=== PATIENT | male | born 1955 | race Caucasian/White ===

== ENCOUNTER 2023-02-17 09:07 | Emergency (ER) | payer MEDICARE, BC ==
[~2023-02-17] VITALS: Ht 182.9 cm; Wt 81.6 kg
[2023-02-17] MEDS ORDERED: ONDANSETRON ODT 4 MG TAB.RAPDIS SL ONE (10:00)
[2023-02-17] MEDS ORDERED: MECLIZINE HCL 25 MG TABLET PO ONE (10:00)
[2023-02-17] MEDS ORDERED: MECLIZINE HCL 25 MG TABLET ONE (10:03)
[2023-02-17] MEDS ORDERED: ONDANSETRON ODT 4 MG TAB.RAPDIS ONE (10:03)
[2023-02-17] MEDS ORDERED: MECL-159 PO (10:07)
[2023-02-17 10:24] LABS: CALCIUM 9.8 mg/dL (8.5-10.1); CREATININE 1.3 mg/dL (0.6-1.3); POTASSIUM 4.2 mmol/L (3.5-5.1)
[2023-02-17 10:27] LABS: BASOPHILS % (AUTO) 0.4 % (0.0-2.0); DIFFERENTIAL COMMENT 0; EOSINOPHILS % (AUTO) 0.4 % (0.0-7.0); HEMATOCRIT 42.5 % (36.7-47.1); HEMOGLOBIN 14.7 g/dL (12.5-16.3); LYMPHOCYTES % (AUTO) 12.4 % (20.5-51.5); MEAN CORPUSCULAR HEMOGLOBIN 33.1 uug (23.8-33.4); MEAN CORPUSCULAR HGB CONC 35 g/dL (32.5-36.3); MEAN CORPUSCULAR VOLUME 95.7 fL (73.0-96.2); MONOCYTES # (AUTO) 0.4 K/uL (0.1-1.30); MONOCYTES % (AUTO) 5.2 % (0.0-11.0); NEUTROPHILS # (AUTO) 6.2 K/uL (1.8-8.9); NEUTROPHILS % (AUTO) 81.6 % (38.5-71.5); PLATELET COUNT (AUTO) 203 K/uL (152-348); RED BLOOD CELL COUNT(AUTO) 4.45 MIL/uL (4.06-5.63); RED CELL DISTRIBUTION WIDTH 13.9 % (12.1-16.2); WHITE BLOOD COUNT (AUTO) 7.6 K/uL (3.6-10.2)
[2023-02-17 10:29] LABS: ALBUMIN 3.7 g/dL (3.4-5.0); TOTAL PROTEIN, SERUM 7.1 g/dL (6.4-8.2)
[2023-02-17] MEDS ORDERED: PROCHLORPERAZINE EDISYLATE 10 MG/2 ML VIAL ONE (11:13)
[2023-02-17] MEDS ORDERED: IV NORMAL SALINE 500 ML BAG IV ONE (11:15)
[2023-02-17] MEDS ORDERED: PROCHLORPERAZINE EDISYLATE 10 MG/2 ML VIAL IV ONE (11:15)
[2023-02-17 12:27] LABS: *BILIRUBIN,URIN NEGATIVE (NEGATIVE); *BLOOD, URINE NEGATIVE (NEGATIVE); *CLARITY,URINE CLEAR (CLEAR); *COLOR,URINE YELLOW (YELLOW); *KETONES,URINE NEGATIVE (NEGATIVE); *PROTEIN,URINE NEGATIVE (NEGATIVE); *UROBILINOGEN,URINE 0.2 E.U./dl (NORMAL); LEUKOCYTE ESTERASE ,URINE NEGATIVE (NEGATIVE); NITRITE, URINE NEGATIVE (NEGATIVE); PH,URINE 6.5 (5.0-8.0); UGLUCOSE NEGATIVE (NEGATIVE)
[2023-02-17] MEDS ORDERED: PROC-11 PO (12:38)
[2023-02-17 12:42] VITALS: BP 128/80; TEMP 98; O2SAT 99
== END 2023-02-17 12:43 | disposition home or self-care (01) ==
LOC: ER 09:07
DX: H81.10 Benign paroxysmal vertigo, unspecified ear (principal); E78.5 Hyperlipidemia, unspecified; Z79.899 Other long term (current) drug therapy
CPT/HCPCS: 99285; 96374; 70450; 96361; 80053; 81003; 85025; 84484; 36415; 93005; J0780; J7040; A4663; J8597; Q0162